=== PATIENT | female | born 2000 | race Caucasian/White ===

== ENCOUNTER → 2018-04-10 10:16 | Emergency (ER) | payer OTHER ==
[~2018-04-10 10:16] MED LIST: Iohexol 300* (CONTRAST) 10 ML SDV IV ONE; Ketorolac INJ* 30 MG/ML 1 ML VIAL IV PUSH ONE; Metoclopramide IV* 5 MG/ML 2 ML VIAL IV ONE; NS 0.9% 1000 ML* 1,000 ML IV ONE
--- NOTE | 2018-04-10 11:13 | ED ---
Abdominal Pain/Female - HPI Summary HPI Summary: The pt is 17 year old female who is presenting to the [facility] with a chief complaint of abd pain. The patient is accompanied by her link trainer teacher. Onset of the pain was last night (1999 on 04/09/18). Location of the pain is described to be at the right lower quadrant. She is currently on her period which began 2 days ago. Patient is sexually active and is currently on control. No menstrual pain is reported. Other symptoms denied include chills, vomiting, fever, and urinary symptoms. Patient also denies . Positive symptom includes nausea. The abd pain is aggravated by palpation and abdominal flexing. PSHx includes Cholecystectomy. The pain is also stated to be constant and a 7/10. - History of Current Complaint Chief Complaint: EDAbdPain Stated Complaint: RT ABD PAIN Time Seen by Provider: 04/10/18 10:43 Hx Obtained From: Patient ?: No Onset/Duration: Lasting Hours - Since 1999 on 04/09/18 Severity Initially: Moderate Severity Currently: Moderate Pain Intensity: 7 Pain Scale Used: 0-10 Numeric Location: Discrete At: RLQ Aggravating Factor(s): Movement - Abd flexing, Other: - Palpation Alleviating Factor(s): Nothing Associated Signs and Symptoms: Positive: Nausea, Other: - Negative chills. Negative: Fever, Urinary Symptoms, Vomiting Allergies/Adverse Reactions: Allergies Allergy/AdvReac Type Severity Reaction Status Date / Time No Known Allergies Allergy Verified 04/10/18 10:30 Home Medications: Home Medications Norgestimate-Ethinyl Estradiol [Ssg-Fe-Vjzuqg 0.18/0.215/0.25 mg-25 Mcg] 1 tab PO DAILY 04/10/18 [History Confirmed 04/10/18] PMH/Surg Hx/FS Hx/Imm Hx GI History: Reports: Hx Gall Bladder Disease Sensory History: Denies: Hx Legally Blind Opthamlomology History: Denies: Hx Legally Blind EENT History: Denies: Hx Deafness - Immunization History Immunizations Up to Date: Yes Infectious Disease History: No Infectious Disease History: Denies: Traveled Outside the [place] in Last 30 Days - Family History Family History: FHx is reviewed and not siginificant - Social History Occupation: Student Lives: Dormitory/Roommates Alcohol Use: Weekly Alcohol Amount: 2times Substance Use Type: Reports: None Smoking Status (MU): Never Smoked Tobacco Review of Systems Negative: Fever, Chills Eyes: Negative ENT: Negative Cardiovascular: Negative Respiratory: Negative Positive: Abdominal Pain - RLQ, Nausea. Negative: Vomiting Genitourinary: Other - Negative Urinary Symptoms Musculoskeletal: Negative Skin: Negative Neurological: Negative Psychological: Normal All Other Systems Reviewed And Are Negative: Yes Physical Exam - Summary Physical Exam Summary: GENERAL: Patient is a well-developed and nourished Female who is lying comfortable in the stretcher. Patient is not in any acute respiratory distress. HEAD AND FACE: Normocephalic EYES: PERRLA, EOMI x 2. EARS: Hearing grossly intact. MOUTH: Oropharynx within normal limits. NECK: Supple, trachea is midline, no adenopathy, no JVD, no carotid bruit. CHEST: Symmetric, no tenderness at palpation LUNGS: Clear to auscultation bilaterally. No wheezing or crackles. CVS: Regular rate and rhythm, S1 and S2 present, no murmurs or gallops appreciated. ABDOMEN: McBurney's point tenderness and RLQ Tenderness EXTREMITIES: Full ROM in all major joints, no edema, no cyanosis or clubbing. NEURO: Alert and oriented x 3. No acute neurological deficits. Speech is normal and follows commands. SKIN: Dry and warm Triage Information Reviewed: Yes Vital Signs On Initial Exam: Initial Vitals Temp Pulse Resp BP Pulse Ox 99.2 F 66 16 162/65 97 04/10/18 10:28 04/10/18 10:28 04/10/18 10:28 04/10/18 10:28 04/10/18 10:28 Vital Signs Reviewed: Yes Diagnostics - Vital Signs Vital Signs Temp Pulse Resp BP Pulse Ox 04/10/18 10:55 99.0 F 04/10/18 10:28 99.2 F 66 16 162/65 97 - Laboratory Result Diagrams: 04/10/18 11:21 04/10/18 11:21 Lab Statement: Any lab studies that have been ordered have been reviewed, and results considered in the medical decision making process. - CT CT Abd/Pelvic CT Interpretation Completed By: Radiologist Summary of CT Findings: CT abd/pelvic reveals, per radiologist, #. No acute abdominal pelvic pathologic process evident. #. Normal appendix visualized. # . Negative for obstructive uropathy. ED physician has reviewed this radiology report. - Ultrasound No standard instances Ultrasound Interpretation Completed By: Radiologist Summary of Ultrasound Findings: Pelvis Ultrasound reveals NEGATIVE EXAM as per radiologist. ED physician has reviewed this radiology report. Abdominal Pain Fem Course/Dx - Course Course Of Treatment: The pt is a 17 year old female who is presenting to the [facility] with a chief complaint of RLQ pain. The pt received an US of the pelvis and a CT Abd/Pelvis and was unremarkable as per radiologist report. The dx will be abd pain. The patient will be discharged home. We discussed results with patient and she reports feeling better. She is hemodynamically stable and safe for discharge. Strict return precautions given and she will otherwise follow up with her PCP. - Diagnoses Provider Diagnoses: Abdominal pain Discharge - Sign-Out/Discharge Documenting (check all that apply): Patient Departure - Discharge Home - Discharge Plan Condition: Stable Disposition: HOME Prescriptions: traMADol TAB* [Ultram*] 50 mg PO Q8H PRN #15 tab MDD 3 PRN Reason: Pain Patient Education Materials: Acute Abdominal Pain (ED) Referrals: [facility], [Provider Group] [facility] [Provider Group] Additional Instructions: Follow up with your primary care physician or Health Center in 1-3 days RETURN TO THE EMERGENCY DEPARTMENT FOR CHANGING OR WORSENING SYMPTOMS. - Billing Disposition and Condition Condition: STABLE Disposition: Home - Attestation Statements Document Initiated by Ulysses: Yes Documenting Scribe: Stephan Hull Provider For Whom Donge is Documenting (Include Credential): Dr. Garima Goss Attestation: Stephan Junior scribed for Dr. Garima Ponce on 04/11/18 at 0854. Scribe Documentation Reviewed: Yes Provider Attestation: The documentation as recorded by the Stephan goss accurately reflects the service I personally performed and the decisions made by me, Dr. Garima Ponce Status of Scribe Document: Viewed
[2018-04-10 11:30] LABS: ABS Basophils 0 10^3/ul (0-0.2); ABS Eosinophils 0 10^3/ul (0-0.6); ABS Lymphocytes 1.3 10^3/ul (1.0-4.8); ABS Monocytes 0.3 10^3/ul (0-0.8); ABS Nucleated RBC 0 10^3/ul; Hematocrit 38 % (35-47); Hemoglobin 12.5 g/dl (12.0-16.0); Lymphocyte % 28.7 %; Mean Corpuscular HGB Conc 33 g/dl (31-36); Mean Corpuscular Hemoglobin 28 pg (27-31); Mean Corpuscular Volume 86 fL (80-97); Mean Platelet Volume 6.8 fL (7.4-10.4); Nucleated Red Blood Cells % 0; Platelet Count 259 10^3/ul (150-450); Red Blood Count 4.42 10^6/ul (4.00-5.40); Red Cell Distribution Width 14 % (10.5-15); White Blood Count 4.7 10^3/ul (3.5-10.8)
[2018-04-10 11:41] LABS: Activated Partial Thrombo Time 28.1 seconds (26.0-36.3); INR 0.94 (0.77-1.02)
[2018-04-10 11:48] LABS: Urine Appearance Clear; Urine Bacteria Absent (Absent); Urine Bilirubin Negative (Negative); Urine Blood Negative (Negative); Urine Color Yellow; Urine Glucose Negative (Negative); Urine Ketones Negative (Negative); Urine Nitrite Negative (Negative); Urine Protein 1+(30 mg/dL) (Negative); Urine Red Blood Cell Trace(0-2/hpf) (Absent); Urine Specific Gravity 1.027 (1.010-1.030); Urine Urobilinogen Negative (Negative); Urine White Blood Cell Trace(0-5/hpf) (Absent)
[2018-04-10 12:02] LABS: ALT 9 U/L (7-52); AST 16 U/L (13-39); Albumin/Globulin Ratio 1.2 (1-3); Alkaline Phosphatase 51 U/L (34-104); Anion Gap 8 mmol/L (2-11); BUN/Creatinine Ratio 16.7 (8-20); Blood Urea Nitrogen 13 mg/dL (6-24); CO2 Carbon Dioxide 25 mmol/L (22-32); Calcium 9.6 mg/dL (8.6-10.3); Chloride 106 mmol/L (101-111); EGFR Non-African American 95.1 (>60); Globulin 3.3 g/dL (2-4); Glucose 89 mg/dL (70-100); Potassium 3.7 mmol/L (3.5-5.0); Sodium 139 mmol/L (135-145); Total Protein 7.3 g/dL (6.4-8.9)
[2018-04-10 12:06] LABS: HCG Pregnancy < 0.60 mIU/mL
[2018-04-10 14:39] VITALS: BP 133/68
== END | disposition home or self-care (01) ==
LOC: ED 10:16
DX: R10.9 Unspecified abdominal pain (principal); R11.0 Nausea
CPT/HCPCS: 36415; 74177; 76856; 80053; 81003; 81015; 83690; 84702; 85025; 85610; 85730; 87086; 96361; 96374; 96375; 99282; J1885; J2765; Q9967